=== PATIENT | female | born 1990 | race Caucasian/White ===

== ENCOUNTER → 2020-04-15 | Outpatient (CLI) | payer BC ==
[~2020-04-15] MED LIST: CEFTIN 250250 MG/TAB PO; MICROGESTIN FE1 TA1 PO; NORCO 325 MG-51 TAB PO
--- NOTE | 2020-04-15 15:52 | NUR ---
Called Dr. Monroe's nurse with request to order glucose meter/strips, lancing device and lancets per insurance's preference. LVM.
== END ==
LOC: DIA.ED 08:19
DX: O24.419 Gestational diabetes mellitus in pregnancy, unspecified control (principal)
CPT/HCPCS: G0108

== ENCOUNTER 2020-04-23 11:39 | Outpatient (RCR) | payer BC ==
--- NOTE | 2020-04-13 16:00 | NUR ---
Patient arrives ambulatory for scheduled NST. Patient denies contractions, ROM or vaginal bleeding. Reports normal movement. VSS, EFM explained and applied. EFM adjusted by multiple RNs for baby B. 1622- EFM readjusted and tracing well. 1647- Reactive category 1 FHR strip obtained per protocol. Reviewed by this RN and Bravo Gardiner, cryolite recovery operator. Dr. Monroe notified see physician notification. Taken off EFM and follow up NST scheduled. Discharge instructions reviewed by Bravo Gardiner RN.
[~2020-04-23] VITALS: Ht 170.2 cm; Wt 81.6 kg
--- NOTE | 2020-04-23 11:00 | NUR ---
PT HERE FOR NST FOR TWIN GESTATION. BOTH TWINS VERY ACTIVE WITH ACCELS AND MODERATE VARIABILITY. REPORTS TWINS ARE CONSTANTLY MOVING. SEVERAL QUESTIONS ASKED AND ANSWERED ABOUT LABOR AND DELIVERY. PHONED DR CASTILLO WITH STATUS UPDATE ON NST WITH REACTIVE STRIP ON BOTH BABIES. PT DISCHARGED TO HOME. TO HAVE REPEAT NST IN 2 WEEKS.
[2020-05-17] MEDS ORDERED: PRILOSEC 20MG20 MG PO (03:20)
[2020-05-17] MEDS ORDERED: PRENATAL TABLET PO (03:21)
[2020-05-19] MEDS ORDERED: PERCOCET 325 MG1 TA2 PO (08:24)
[2020-05-19] MEDS ORDERED: MOTRIN 800800 MG/TAB PO (08:24)
== END 2020-07-12 | disposition still patient (30) ==
LOC: LDRO
DX: O30.93 Multiple gestation, unspecified, third trimester (principal); Z3A.33 33 weeks gestation of pregnancy

== ENCOUNTER → 2020-04-29 | Outpatient (CLI) | payer BC ==
[~2020-04-29] MED LIST changes: +MOTRIN 800800 MG/TAB PO; +PERCOCET 325 MG1 TA2 PO; +PRENATAL TABLET PO; +PRILOSEC 20MG20 MG PO
== END ==
LOC: DIA.ED
DX: O24.419 Gestational diabetes mellitus in pregnancy, unspecified control (principal)
CPT/HCPCS: G0108

== ENCOUNTER → 2020-05-12 | Outpatient (CLI) | payer BC | LOC: ZCOL.LAB 15:02 | DX: U07.1 COVID-19 (principal) ==

== ENCOUNTER 2020-05-17 02:26 | Inpatient (IN) | payer BC ==
--- NOTE | 2020-05-14 11:16 | NUR ---
Patient tested positive for COVID on 05/12/20. Marya Boles, with and womens is notified. She states that she has notified Dr. Monroe's office who has contacted the patient.
[2020-05-17] VITALS (39 sets, daily range): BP systolic 104–146; BP diastolic 56–88; PULSE 67–100; TEMP 98–98.5
[~2020-05-17] VITALS: Ht 170.2 cm; Wt 82.7 kg
[~2020-05-17 02:26] MED LIST changes: -MOTRIN 800800 MG/TAB PO; -PERCOCET 325 MG1 TA2 PO; -PRENATAL TABLET PO; -PRILOSEC 20MG20 MG PO
--- NOTE | 2020-05-17 02:30 | NUR ---
G1 at 38 weeks and 1 day with di/di twins arrives to unit by wheelchair with complaint of heavy vaginal bleeding. Pt states she woke up around 0200 with large gush of bright red blood. Pt states she has started fatou since and has not felt her babies move. Pt visibly very stressed and anxious. Pt arrived in adult underwear that was saturated with bright red blood. Pt oriented to room, call light within reach, bed in low and locked position. US x 2 and toco explained and applied. Plan of care reviewed with patient. Pt was to be scheduled induction of labor this morning at 0700. Pt had covid swab done prior to admission and was COVID +. Admission assessment started. Vital signs obtained. SVE 4/90/-2, moderate amount of bloody fluid returned with exam.
--- NOTE | 2020-05-17 03:00 | NUR ---
18G IV started in left forearm with 1 attempt. Admission labs obtained off IV start. Lactated Ringers infusing to gravity. Consents reviewed and signed with patient, pt verbalized understanding.
--- NOTE | 2020-05-17 03:15 | NUR ---
at bedside discussing plan of care. BSUS completed to determine position of babies. Baby A Vertex, Baby B transverse.
[2020-05-17 03:20] LABS: BASO % 0.3 % (0.0-2.0); EOS # 0.2 (0.0-0.7); EOS % 1.6 % (0-4.0); GRAN # 8.6 (1.4-6.5); GRAN % 75.3 % (42.2-75.2); HEMATOCRIT 39.1 % (37.0-47.0); HEMOGLOBIN 13.2 g/dl (12.5-16.0); LYMPH # 1.8 (1.2-3.4); MEAN CELL VOLUME 94 fl (80.0-100.0); MEAN CORPUSCULAR HEMOGLOBIN 32 pg (27.0-31.0); MEAN CORPUSCULAR HGB CONC 34 g/dl (33.0-37.0); MEAN PLATELET VOLUME 11.6 fl (7.4-10.4); MONO # 0.7 (0.1-0.6); MONO % 6.3 % (1.7-9.3); PLATELET COUNT 182 K/mm3 (130-400); RED BLOOD COUNT 4.14 M/mm3 (4.10-5.30)
[2020-05-17] MEDS ORDERED: PRILOSEC 20MG20 MG PO (03:20)
[2020-05-17] MEDS ORDERED: PRENATAL TABLET PO (03:21)
[2020-05-17 04:09] LABS: ALBUMIN 3.7 gm/dL (3.5-5.0); BILIRUBIN,TOTAL 0.4 mg/dL (0.0-1.0); CALCIUM 8.8 mg/dL (8.4-10.2); CREATININE, serum 0.73 (0.52-1.25); POTASSIUM 3.8 mmol/L (3.4-5.0); TOTAL PROTEIN 7.2 gm/dL (6.4-8.2)
--- NOTE | 2020-05-17 04:36 | NUR ---
0350 - Pt requesting epidural be placed at this time but not hooked up to continuous infusion. Discussed this with Dr. Monroe. Lorri Melendez CRNA notified. Lactated Ringers bolus started. 0425 - RAMA Sandoval at bedside. Epidural procedure, risks, and benefits reviewed with patient. Pt desires to only have catheter placed with no infusion at this time. Pt positioned to sitting on edge of bed. 0436 - Test dose by RAMA Sandoval. Pt denies any adverse reactions. 0445 - Pt encouraged to continue sitting on edge of bed for a few more minutes until test dose has wore off. See Anesthesia record.
--- NOTE | 2020-05-17 06:25 | NUR ---
0625- Patient requesting epidural bolused. See anesthesia notification. 0627- Jasmina Boogiebs RUBBER PRODUCTION MACHINE OPERATOR at bedside. Epidural bolused. See anesthesia record. 0635- Plan of care reviewed with patient and spouse who verbalize understanding. RN remains at bedside.
--- NOTE | 2020-05-17 07:20 | NUR ---
Dr. Monroe to bedside. Reviews strips and plan of care with patient and famliy who verbalize understanding.
--- NOTE | 2020-05-17 08:15 | NUR ---
0815- Dr. Monroe to bedside. SVE 10cm. Orders to move patient to OR for delivery. Plan of care reviewed with patient and family who verbalize understanding. 0825- Catheter removed, EFM off. Patient to OR1 via bed. 0828- Patient to OR table. EFM applied and tracing well. Repositioned in stirrups. Instructed on pushing with ctx. Verbalizes understanding. Bedside US by Dr. Monroe. Dr. Burgess to bedside. OR staff, and nursery staff to bedside. 0835- Patient begins to push with ctx with Dr. Monroe at bedside. Moves vertex. Slow progress noted. 0850- FHR A & B with decel down to 100bmp with spontaneous return to baseline. Difficult to determine onset due to intermittent ctx tracing. RN remains at bedside adj EFM. 0940- Patient continues to push with ctx with Dr. Monroe at bedside. FHR B with recurrent late deces. Dr. Monroe remains at bedside and reviews strips. Slow progress noted. 0945- FHR A with intermittent late decels. FHR B with recurrent late decels. Dr. Monroe councils patient on VAVD. Patient verbalizes understanding and agreement. 0948- Vacuum applied to occiput twin A head. Traction applied to vertex by Dr. Monroe with maternal pushing efforts. VAVD of viable male . Delayed cord clamping. Nares and mouth bulb suctioned by Dr. Monroe. Cord clamped x2 and cut by FOB. Dr. Burgess at [facility] and ultrasound for twin B presentation. 0950- Twin A to warmer. Care of twin A assumed by nursery staff. Attempted external version of twin B at this time. 0952- Twin B remains vertex. Plan to proceed with primary c/s by Dr. Monroe. Patient prepped for delivery. FHR twin B 120's prior to abdominal prep. 1002- delivery of twin B. To warmer where attended by nursery staff. See doctor dictation, anesthesia record, and nurses notes. 1102- To LDR1 via bed. Monitors applied. Plan of care reviewed with patient and family who verbalize understanding. Denies questions or needs at this time.
--- NOTE | 2020-05-17 14:30 | NUR ---
Patient to edge of bed. Denies dizziness or lightheadedness. Ambulatory to BR with stand by assist. Catheter removed. Nan care provided, pads changed, and ice pack to perineum. Ambulatory back to bed ind. Plan of care reviewed, patient verbalizes understanding.
[2020-05-18 01:40] VITALS: BP 110/63; PULSE 68; TEMP 98
[2020-05-18 04:20] VITALS: BP 102/56; PULSE 61; TEMP 98.1
--- NOTE | 2020-05-18 07:06 | NUR ---
REPORT RECEIVED FROM OFF GOING RN, RAMÍREZ Bear CARE TAKEN OVER BY THIS RN.
[2020-05-18 07:10] VITALS: BP 107/58; PULSE 71; TEMP 98.1
[2020-05-18 16:27] VITALS: BP 106/51; PULSE 75; TEMP 97.7
--- NOTE | 2020-05-18 18:45 | NUR ---
Report recieved. Resting in bed while holding twin A. Food to bedside. Updated whiteboard. POC reviewed. Questions invited.
[2020-05-18 20:00] VITALS: BP 109/60; PULSE 85; TEMP 97
[2020-05-19 07:56] VITALS: BP 109/56; PULSE 73; TEMP 97.7
[2020-05-19] MEDS ORDERED: PERCOCET 325 MG1 TA2 PO (08:24)
[2020-05-19] MEDS ORDERED: MOTRIN 800800 MG/TAB PO (08:24)
[2020-05-19 16:51] VITALS: BP 114/56; PULSE 72
[2020-05-19 20:35] VITALS: BP 116/57; PULSE 79; TEMP 98.3
[2020-05-20 07:00] VITALS: BP 116/57; PULSE 67; TEMP 98.1
--- NOTE | 2020-05-20 08:22 | NUR ---
Breakfast trays provided and Videos taken in and encouraged to be watched. Denies needs at this time.
== END 2020-05-20 14:30 | disposition home or self-care (01) | DRG 786 ==
LOC: LDR 02:26
PROVIDERS: Obstetrics & Gynecology; ADMIT Obstetrics & Gynecology
PROC: 10D00Z1 Extraction of Products of Conception, Low, Open Approach (ICD-10-PCS; principal; 2020-05-17)
PROC: 10D07Z6 Extraction of Products of Conception, Vacuum, Via Natural or Artificial Opening (ICD-10-PCS; 2020-05-17)
PROC: 0UQMXZZ Repair Vulva, External Approach (ICD-10-PCS; 2020-05-17)
DX: O30.043 Twin pregnancy, dichorionic/diamniotic, third trimester (principal); U07.1 COVID-19; O98.52 Other viral diseases complicating childbirth; Z37.2 Twins, both liveborn; O24.420 Gestational diabetes mellitus in childbirth, diet controlled; O34.13 Maternal care for benign tumor of corpus uteri, third trimester; D25.9 Leiomyoma of uterus, unspecified; O76 Abnormality in fetal heart rate and rhythm complicating labor and delivery; O70.0 First degree perineal laceration during delivery; O32.1XX2 Maternal care for breech presentation, fetus 2; O32.2XX2 Maternal care for transverse and oblique lie, fetus 2; Z3A.38 38 weeks gestation of pregnancy
CPT/HCPCS: J0690; J1100; J1885; J2210; J2400; J2540; J2590; J3010; J7120

== ENCOUNTER → 2020-05-26 | Outpatient (CLI) | payer BC ==
[~2020-05-26] MED LIST changes: +MOTRIN 800800 MG/TAB PO; +PERCOCET 325 MG1 TA2 PO; +PRENATAL TABLET PO; +PRILOSEC 20MG20 MG PO
== END ==
LOC: LAC 11:15
DX: Z39.1 Encounter for care and examination of lactating mother (principal); Z71.89 Other specified counseling